=== PATIENT | male | born 1980 | race Caucasian/White ===

== ENCOUNTER 2017-10-07 12:13 | Day surgery (SDC) | payer OTHER ==
[2017-10-07] MEDS ORDERED: PROPOFOL 40 ML (15:35)
[2017-10-07] MEDS ORDERED: LIDOCAINE 100 MG SYRINGE ×3 (15:36→15:37)
[2017-10-07] MEDS ORDERED: KETAMINE (50 MG/ML) 10 ML VIAL (15:45)
== END 2017-10-07 17:58 | disposition home or self-care (01) ==
LOC: GIL 12:13
DX: I85.00 Esophageal varices without bleeding (principal); K29.70 Gastritis, unspecified, without bleeding; I10 Essential (primary) hypertension; E11.9 Type 2 diabetes mellitus without complications; F17.200 Nicotine dependence, unspecified, uncomplicated; Z79.84 Long term (current) use of oral hypoglycemic drugs
CPT/HCPCS: 43235; 82962

== ENCOUNTER 2018-01-06 21:21 | Emergency (ER) | payer OTHER ==
[2018-01-06] MEDS: LIDOCAINE 2% VISC 15 ML CUP PO (23:27)
[2018-01-06] MEDS: ACETAMINOPHEN 325/HYDROC 7.5 15 ML CUP PO (23:27)
[2018-01-06] MEDS: SOD CHLORIDE 0.9% 1,000 ML IV (23:27)
[2018-01-06] MEDS: KETOROLAC 15 MG INJ IV (23:34)
[2018-01-06 23:47] LABS: ADD MAN DIFF? NO
[2018-01-06 23:57] LABS: BASOPHIL # 0.1 10^3/ul (0.0-0.1); BASOPHILS % 0.6 % (0.0-2.0); EOSINOPHILS # 0.2 10^3/ul (0.0-0.5); EOSINOPHILS % 2.3 % (0.0-7.0); HEMATOCRIT 43.6 % (42.0-52.0); HEMOGLOBIN 15.4 g/dl (14.0-18.0); LYMPHOCYTES # 2.1 10^3/ul (0.8-2.9); LYMPHOCYTES % 19.8 % (15.0-51.0); MEAN CORPUSCULAR HEMOGLOBIN 32.2 pg (29.0-33.0); MEAN CORPUSCULAR HGB CONC 35.3 g/dl (32.0-37.0); MEAN CORPUSCULAR VOLUME 91.2 fl (82.0-101.0); MEAN PLATELET VOLUME 11.8 fl (7.4-10.4); MONOCYTE # 1.5 10^3/ul (0.3-0.9); MONOCYTES % 14.3 % (0.0-11.0); NEUTROPHIL # 6.6 10^3/ul (1.6-7.5); NEUTROPHILS % 62.6 % (39.0-77.0); PLATELET COUNT 155 10^3/UL (140-415); RED BLOOD COUNT 4.78 10^6/ul (4.70-6.10); RED CELL DISTRIBUTION WIDTH 13.1 % (11.5-14.5)
[2018-01-06 23:57] LABS: WHITE BLOOD COUNT 10.5 10^3/ul (4.8-10.8)
[2018-01-06 23:58] LABS: ADD UMIC NO; UR ASCORBIC ACID NEGATIVE (NEGATIVE); UR BILIRUBIN (Dip) NEGATIVE (NEGATIVE); UR BLOOD (Dip) NEGATIVE (NEGATIVE); UR CLARITY CLEAR (CLEAR); UR COLOR YELLOW (YELLOW); UR GLUCOSE (Dip) NEGATIVE (NEGATIVE); UR KETONES (Dip) 1+ mg/dL (NEGATIVE); UR LEUKOCYTE ESTERASE (Dip) NEGATIVE Leu/ul (NEGATIVE); UR NITRITE (Dip) NEGATIVE (NEGATIVE); UR SPECIFIC GRAVITY (Dip) 1.016 (1.003-1.030); UR TOTAL PROTEIN (Dip) NEGATIVE (NEGATIVE); UR UROBILINOGEN (Dip) 1+ mg/dL (NEGATIVE)
[2018-01-07 00:16] LABS: ALANINE AMINOTRANSFERASE 51 IU/L (13-69); ALBUMIN/GLOBULIN RATIO 1.21; ALKALINE PHOSPHATASE 131 IU/L (42-121); ANION GAP 15 (8-16); ASPARTATE AMINO TRANSFERASE 65 IU/L (15-46); BILIRUBIN,INDIRECT 2.5 mg/dl (0-1.1); BILIRUBIN,TOTAL 2.5 mg/dl (0.2-1.3); BLOOD UREA NITROGEN 6 mg/dl (7-20); CALCIUM 9.6 mg/dl (8.4-10.2); CARBON DIOXIDE 27 mmol/L (21-31); CHLORIDE 103 mmol/L (97-110); CREATININE 0.65 mg/dl (0.61-1.24); GLUCOSE 142 mg/dl (70-220); POTASSIUM 4.6 mmol/L (3.5-5.1); SODIUM 140 mmol/L (135-144); TOTAL PROTEIN 7.3 g/dl (6.1-8.1)
== END 2018-01-07 01:47 | disposition home or self-care (01) ==
LOC: FTE 01-07 01:47
DX: B37.0 Candidal stomatitis (principal); I10 Essential (primary) hypertension; F17.210 Nicotine dependence, cigarettes, uncomplicated
CPT/HCPCS: 80053; 81003; 82962; 85025; 96374; 99284-25

== ENCOUNTER 2018-02-23 18:25 | Inpatient (IN) | payer OTHER ==
[2018-02-23] MEDS ORDERED: MAGNESIUM HYDROXIDE 30ML CUP PO (19:30)
[2018-02-23] MEDS ORDERED: ACETAMINOPHEN 325 MG TAB PO (19:30)
[2018-02-23] MEDS ORDERED: DOCUSATE SODIUM 100 MG CAP PO (19:30)
[2018-02-23] MEDS ORDERED: BISACODYL (EC) 5 MG TAB PO (19:30)
[2018-02-23] MEDS: NADOLOL 40 MG TAB PO (19:30)
[2018-02-23] MEDS: SOD CHLORIDE 0.9% 1,000 ML IV (19:51)
[2018-02-23 19:52] LABS: ADD MAN DIFF? NO; HAAIG REFLEX REFLEX FILED
[2018-02-23] MEDS ORDERED: GLUCOSE GEL 15 GRAM TUBE BUCCAL (20:00)
[2018-02-23] MEDS ORDERED: DEXTROSE 50% 50 ML SYRINGE IV ×2 (20:00)
[2018-02-23] MEDS ORDERED: GLUCOSE GEL 15 GRAM TUBE PO ×2 (20:00)
[2018-02-23] MEDS ORDERED: GLUCAGON 1 MG INJ IM (20:00)
[2018-02-23] MEDS: morphine 2 MG INJ IV (20:02)
[2018-02-23] MEDS: CEFTRIAXONE 1 GM/50 ML (PMX) 50 ML IVPB (20:03)
[2018-02-23 20:08] LABS: WHITE BLOOD COUNT 6.7 10^3/ul (4.8-10.8)
[2018-02-23 20:08] LABS: BASOPHILS % 0.6 % (0.0-2.0); EOSINOPHILS # 0.7 10^3/ul (0.0-0.5); EOSINOPHILS % 9.9 % (0.0-7.0); HEMATOCRIT 43.8 % (42.0-52.0); HEMOGLOBIN 15.2 g/dl (14.0-18.0); LYMPHOCYTES # 2.3 10^3/ul (0.8-2.9); LYMPHOCYTES % 34.7 % (15.0-51.0); MEAN CORPUSCULAR HEMOGLOBIN 32.2 pg (29.0-33.0); MEAN CORPUSCULAR HGB CONC 34.7 g/dl (32.0-37.0); MEAN CORPUSCULAR VOLUME 92.8 fl (82.0-101.0); MEAN PLATELET VOLUME 11.4 fl (7.4-10.4); MONOCYTE # 0.8 10^3/ul (0.3-0.9); MONOCYTES % 12.5 % (0.0-11.0); NEUTROPHIL # 2.8 10^3/ul (1.6-7.5); NEUTROPHILS % 41.8 % (39.0-77.0); PLATELET COUNT 105 10^3/UL (140-415); RED BLOOD COUNT 4.72 10^6/ul (4.70-6.10); RED CELL DISTRIBUTION WIDTH 13.2 % (11.5-14.5)
[2018-02-23 20:15] LABS: LACTIC ACID 1.6 mmol/L (0.5-2.0)
[2018-02-23 20:15] LABS: ALANINE AMINOTRANSFERASE 57 IU/L (13-69); ALBUMIN/GLOBULIN RATIO 1.14; ALKALINE PHOSPHATASE 229 IU/L (42-121); ANION GAP 13 (8-16); ASPARTATE AMINO TRANSFERASE 108 IU/L (15-46); BILIRUBIN,INDIRECT 3.2 mg/dl (0-1.1); BILIRUBIN,TOTAL 3.2 mg/dl (0.2-1.3); BLOOD UREA NITROGEN 10 mg/dl (7-20); CARBON DIOXIDE 27 mmol/L (21-31); CHLORIDE 104 mmol/L (97-110); CREATININE 0.61 mg/dl (0.61-1.24); GLUCOSE 107 mg/dl (70-220); POTASSIUM 4.4 mmol/L (3.5-5.1); SODIUM 140 mmol/L (135-144); TOTAL PROTEIN 7.5 g/dl (6.1-8.1)
[2018-02-23 20:46] LABS: HEPATITIS B SURFACE ANTIGEN NEGATIVE (NEGATIVE)
[2018-02-23] MEDS: INSULIN ASPART [NOVOLOG] 3 ML PEN SC (21:00)
[2018-02-23 21:03] LABS: HEPATITIS B CORE ANTIBODY NEGATIVE (NEGATIVE); HIV 1&2 ANTIBODY NEGATIVE (NEGATIVE)
[2018-02-23] MEDS: VALACYCLOVIR 500 MG TAB PO (21:05)
[2018-02-23] MEDS: NYSTATIN SUSP 5 ML CUP PO (21:05)
[2018-02-23 22:03] LABS: HEPATITIS C VIRAL ANTIBODY NEGATIVE (NEGATIVE)
[2018-02-24] MEDS: morphine 2 MG INJ IV ×5 (00:26→19:35)
[2018-02-24] MEDS: ACCU-CHEK XX (01:47)
[2018-02-24 06:34] LABS: ADD MAN DIFF? NO; BASOPHILS % 0.5 % (0.0-2.0); EOSINOPHILS # 0.5 10^3/ul (0.0-0.5); EOSINOPHILS % 8.4 % (0.0-7.0); HEMATOCRIT 42.7 % (42.0-52.0); HEMOGLOBIN 14.6 g/dl (14.0-18.0); LYMPHOCYTES # 2.8 10^3/ul (0.8-2.9); LYMPHOCYTES % 45.2 % (15.0-51.0); MEAN CORPUSCULAR HEMOGLOBIN 31.7 pg (29.0-33.0); MEAN CORPUSCULAR HGB CONC 34.2 g/dl (32.0-37.0); MEAN CORPUSCULAR VOLUME 92.8 fl (82.0-101.0); MEAN PLATELET VOLUME 11.6 fl (7.4-10.4); MONOCYTE # 0.8 10^3/ul (0.3-0.9); MONOCYTES % 12.8 % (0.0-11.0); NEUTROPHILS % 32.8 % (39.0-77.0); PLATELET COUNT 113 10^3/UL (140-415); POSITIVE DIFF @See below; RED CELL DISTRIBUTION WIDTH 13.3 % (11.5-14.5)
[2018-02-24 06:34] LABS: WHITE BLOOD COUNT 6.2 10^3/ul (4.8-10.8)
[2018-02-24 06:50] LABS: HEMOGLOBIN A1C 6.6 % (0-5.9)
[2018-02-24 07:06] LABS: ALANINE AMINOTRANSFERASE 63 IU/L (13-69); ALBUMIN 3.9 g/dl (3.3-4.9); ALBUMIN/GLOBULIN RATIO 0.97; ALKALINE PHOSPHATASE 222 IU/L (42-121); ANION GAP 14 (8-16); ASPARTATE AMINO TRANSFERASE 100 IU/L (15-46); BILIRUBIN,INDIRECT 3.1 mg/dl (0-1.1); BILIRUBIN,TOTAL 3.1 mg/dl (0.2-1.3); BLOOD UREA NITROGEN 9 mg/dl (7-20); CALCIUM 8.9 mg/dl (8.4-10.2); CARBON DIOXIDE 28 mmol/L (21-31); CHLORIDE 99 mmol/L (97-110); CREATININE 0.58 mg/dl (0.61-1.24); GLUCOSE 104 mg/dl (70-220); MAGNESIUM 1.3 mg/dl (1.7-2.5); POTASSIUM 3.6 mmol/L (3.5-5.1); SODIUM 137 mmol/L (135-144); TOTAL PROTEIN 7.9 g/dl (6.1-8.1)
[2018-02-24] MEDS: INSULIN ASPART [NOVOLOG] 3 ML PEN SC ×4 (07:52→20:47)
[2018-02-24] MEDS: VALACYCLOVIR 500 MG TAB PO ×2 (08:14→20:50)
[2018-02-24] MEDS: HYDROCODONE/APAP (5/325) TAB PO (08:14)
[2018-02-24] MEDS: LOSARTAN 25 MG TAB PO (08:14)
[2018-02-24] MEDS: NYSTATIN SUSP 5 ML CUP PO ×4 (08:14→20:50)
[2018-02-24] MEDS: NADOLOL 40 MG TAB PO (09:00)
[2018-02-24] MEDS ORDERED: LIDOCAINE 2% VISC 15 ML CUP MM (12:00)
[2018-02-24] MEDS: SOD CHLORIDE 0.9% 1,000 ML IV ×2 (15:13→17:24)
[2018-02-24] MEDS: FLUCONAZOLE 150 MG TAB PO (18:35)
[2018-02-24] MEDS: PROPRANOLOL 10 MG TAB PO (18:37)
[2018-02-24] MEDS: CEFTRIAXONE 1 GM/50 ML (PMX) 50 ML IVPB (19:35)
[2018-02-24] MEDS: GABAPENTIN 100 MG CAP PO (20:48)
[2018-02-24] MEDS: ACYCLOVIR 1,000 MG in SOD CHLORIDE 0.9% 100 ML IVPB (23:51)
[2018-02-24] MEDS: CASPOFUNGIN 70 MG in SOD CHLORIDE 0.9% 250 ML IVPB (23:51)
[2018-02-25] MEDS: NACL 0.9% 3 ML SYG IV (00:34)
[2018-02-25] MEDS: ACCU-CHEK XX (02:00)
[2018-02-25] MEDS: ACYCLOVIR 1,000 MG in SOD CHLORIDE 0.9% 100 ML IVPB (05:22)
[2018-02-25] MEDS: PANTOPRAZOLE (EC) 40 MG TAB PO (05:22)
[2018-02-25] MEDS: morphine 2 MG INJ IV (07:50)
[2018-02-25] MEDS: INSULIN ASPART [NOVOLOG] 3 ML PEN SC ×2 (07:53→12:00)
[2018-02-25] MEDS: PROPRANOLOL 10 MG TAB PO (08:10)
[2018-02-25] MEDS: LOSARTAN 25 MG TAB PO (08:10)
[2018-02-25] MEDS: GABAPENTIN 100 MG CAP PO (08:10)
[2018-02-25] MEDS: NYSTATIN SUSP 5 ML CUP PO (08:10)
[2018-02-25 10:24] LABS: ADD MAN DIFF? NO
[2018-02-25 10:36] LABS: BASOPHILS % 0.7 % (0.0-2.0); EOSINOPHILS # 0.1 10^3/ul (0.0-0.5); EOSINOPHILS % 1.2 % (0.0-7.0); HEMATOCRIT 40.3 % (42.0-52.0); HEMOGLOBIN 14.2 g/dl (14.0-18.0); LYMPHOCYTES # 1.3 10^3/ul (0.8-2.9); LYMPHOCYTES % 32.4 % (15.0-51.0); MEAN CORPUSCULAR HEMOGLOBIN 31.9 pg (29.0-33.0); MEAN CORPUSCULAR HGB CONC 35.2 g/dl (32.0-37.0); MEAN CORPUSCULAR VOLUME 90.6 fl (82.0-101.0); MEAN PLATELET VOLUME 10.9 fl (7.4-10.4); MONOCYTE # 0.6 10^3/ul (0.3-0.9); MONOCYTES % 14.6 % (0.0-11.0); NEUTROPHILS % 50.6 % (39.0-77.0); PLATELET COUNT 127 10^3/UL (140-415); RED BLOOD COUNT 4.45 10^6/ul (4.70-6.10); RED CELL DISTRIBUTION WIDTH 12.5 % (11.5-14.5)
[2018-02-25 11:05] LABS: ALANINE AMINOTRANSFERASE 55 IU/L (13-69); ALBUMIN 3.5 g/dl (3.3-4.9); ALBUMIN/GLOBULIN RATIO 0.94; ALKALINE PHOSPHATASE 213 IU/L (42-121); ANION GAP 12 (8-16); ASPARTATE AMINO TRANSFERASE 84 IU/L (15-46); BILIRUBIN,INDIRECT 2.4 mg/dl (0-1.1); BILIRUBIN,TOTAL 2.4 mg/dl (0.2-1.3); BLOOD UREA NITROGEN 7 mg/dl (7-20); CALCIUM 9.1 mg/dl (8.4-10.2); CARBON DIOXIDE 26 mmol/L (21-31); CHLORIDE 103 mmol/L (97-110); CREATININE 0.51 mg/dl (0.61-1.24); GLUCOSE 155 mg/dl (70-220); MAGNESIUM 1.4 mg/dl (1.7-2.5); POTASSIUM 3.7 mmol/L (3.5-5.1); SODIUM 137 mmol/L (135-144); TOTAL PROTEIN 7.2 g/dl (6.1-8.1)
[2018-02-25] MEDS: SOD CHLORIDE 0.9% 1,000 ML IV (12:56)
[2018-02-25] MEDS ORDERED: morphine LIQ (10 MG/5 ML) CUP PO (14:00)
[2018-02-25 19:42] LABS: RAPID PLASMA REAGIN NONREACTIVE (NR)
[2018-02-26 13:31] LABS: HSV 1 IGG ANTIBODY >58.00 index; HSV 2 IGG ANTIBODY 2.77 index
[2018-03-04] MEDS ORDERED: CASPOFUNGIN 50 MG in SOD CHLORIDE 0.9% 250 ML IVPB (21:00)
== END 2018-02-25 15:00 | disposition left against medical advice (07) | DRG 159 ==
LOC: 2NE 18:25
DX: B37.0 Candidal stomatitis (principal); K70.30 Alcoholic cirrhosis of liver without ascites; I10 Essential (primary) hypertension; E11.9 Type 2 diabetes mellitus without complications; F10.20 Alcohol dependence, uncomplicated
CPT/HCPCS: 80053; 82962; 83036; 83605; 83735; 84100; 85025; 86592; 86692; 86703; 86704; 86709; 86803; 87040; 87070; 87081; 87340; 87536

== ENCOUNTER 2018-02-25 16:41 | Emergency (ER) | payer OTHER ==
[2018-02-25 19:15] LABS: ADD MAN DIFF? NO
[2018-02-25 19:24] LABS: BASOPHILS % 0.3 % (0.0-2.0); EOSINOPHILS % 0.2 % (0.0-7.0); HEMATOCRIT 42.1 % (42.0-52.0); HEMOGLOBIN 14.8 g/dl (14.0-18.0); LYMPHOCYTES # 1.4 10^3/ul (0.8-2.9); LYMPHOCYTES % 22.5 % (15.0-51.0); MEAN CORPUSCULAR HEMOGLOBIN 31.8 pg (29.0-33.0); MEAN CORPUSCULAR HGB CONC 35.2 g/dl (32.0-37.0); MEAN CORPUSCULAR VOLUME 90.5 fl (82.0-101.0); MEAN PLATELET VOLUME 10.4 fl (7.4-10.4); MONOCYTE # 0.9 10^3/ul (0.3-0.9); MONOCYTES % 14.2 % (0.0-11.0); NEUTROPHIL # 3.9 10^3/ul (1.6-7.5); PLATELET COUNT 169 10^3/UL (140-415); RED BLOOD COUNT 4.65 10^6/ul (4.70-6.10); RED CELL DISTRIBUTION WIDTH 12.8 % (11.5-14.5)
[2018-02-25 19:24] LABS: WHITE BLOOD COUNT 6.2 10^3/ul (4.8-10.8)
[2018-02-25 19:36] LABS: ADD UMIC YES; UR ASCORBIC ACID NEGATIVE (NEGATIVE); UR BILIRUBIN (Dip) NEGATIVE (NEGATIVE); UR BLOOD (Dip) NEGATIVE (NEGATIVE); UR CLARITY CLEAR (CLEAR); UR COLOR YELLOW (YELLOW); UR GLUCOSE (Dip) NEGATIVE (NEGATIVE); UR KETONES (Dip) 1+ mg/dL (NEGATIVE); UR LEUKOCYTE ESTERASE (Dip) NEGATIVE Leu/ul (NEGATIVE); UR NITRITE (Dip) NEGATIVE (NEGATIVE); UR RBC 1 /HPF (0-5); UR SPECIFIC GRAVITY (Dip) 1.015 (1.003-1.030); UR TOTAL PROTEIN (Dip) 1+ mg/dl (NEGATIVE); UR UROBILINOGEN (Dip) 2+ mg/dL (NEGATIVE); UR WBC 1 /HPF (0-5)
[2018-02-25 19:54] LABS: ALANINE AMINOTRANSFERASE 62 IU/L (13-69); ALBUMIN 4.1 g/dl (3.3-4.9); ALBUMIN/GLOBULIN RATIO 1.05; ALKALINE PHOSPHATASE 221 IU/L (42-121); ANION GAP 13 (8-16); ASPARTATE AMINO TRANSFERASE 87 IU/L (15-46); BILIRUBIN,INDIRECT 2.5 mg/dl (0-1.1); BILIRUBIN,TOTAL 2.5 mg/dl (0.2-1.3); BLOOD UREA NITROGEN 8 mg/dl (7-20); CALCIUM 9.6 mg/dl (8.4-10.2); CARBON DIOXIDE 28 mmol/L (21-31); CHLORIDE 102 mmol/L (97-110); CREATININE 0.58 mg/dl (0.61-1.24); GLUCOSE 136 mg/dl (70-220); POTASSIUM 4.4 mmol/L (3.5-5.1); SODIUM 139 mmol/L (135-144)
[2018-02-25 20:00] LABS: ACETAMINOPHEN < 10.0 ug/ml (10.0-30.0); SALICYLATE < 1.0 mg/dl (5.0-30.0)
[2018-02-25 20:04] LABS: AMPHETAMINE/METHAMPHETAMINE Negative (NEGATIVE); BARBITURATES Negative (NEGATIVE); BENZODIAZEPINES Negative (NEGATIVE); CANNABINOIDS Positive (NEGATIVE); COCAINE Negative (NEGATIVE)
[2018-02-25 20:09] LABS: OPIATES Positive (NEGATIVE)
[2018-02-25 20:13] LABS: ETHANOL < 10.0 mg/dl
[2018-02-25] MEDS: HYDROCODONE/APAP (5/325) TAB PO (22:54)
== END 2018-02-25 23:14 | disposition home or self-care (01) ==
LOC: E/R 23:14
DX: R44.0 Auditory hallucinations (principal); T36.7X5A Adverse effect of antifungal antibiotics, systemically used, initial encounter; I10 Essential (primary) hypertension; E11.9 Type 2 diabetes mellitus without complications; Z79.84 Long term (current) use of oral hypoglycemic drugs; Z87.891 Personal history of nicotine dependence
CPT/HCPCS: 36415; 80053; 80307; 81001; 85025; 99283

== ENCOUNTER 2018-08-15 20:17 | Emergency (ER) | payer OTHER ==
[2018-08-16] MEDS: predniSONE 20 MG TAB PO (00:07)
[2018-08-16] MEDS: CHLORHEXIDINE GLUCONATE 15 ML UD CUP MT (00:07)
[2018-08-16] MEDS: KETOROLAC 15 MG INJ IM (00:07)
== END 2018-08-16 00:45 | disposition home or self-care (01) ==
LOC: E/R 08-16 00:45
DX: K12.1 Other forms of stomatitis (principal); I10 Essential (primary) hypertension; E11.9 Type 2 diabetes mellitus without complications; Z79.84 Long term (current) use of oral hypoglycemic drugs; Z87.891 Personal history of nicotine dependence
CPT/HCPCS: 96372; 99284-25

== ENCOUNTER 2018-09-08 13:20 | Emergency (ER) | payer OTHER | END 2018-09-08 15:44 | disposition home or self-care (01) | LOC: FTE 13:20 | DX: K12.0 Recurrent oral aphthae (principal); E11.9 Type 2 diabetes mellitus without complications; I10 Essential (primary) hypertension; Z79.84 Long term (current) use of oral hypoglycemic drugs | CPT/HCPCS: 99283; Z7502 ==

== ENCOUNTER 2018-09-13 10:24 | Emergency (ER) | payer OTHER | END 2018-09-13 16:44 | disposition home or self-care (01) | LOC: FTE 10:24 | DX: K12.0 Recurrent oral aphthae (principal); I10 Essential (primary) hypertension; E11.9 Type 2 diabetes mellitus without complications; Z79.84 Long term (current) use of oral hypoglycemic drugs | CPT/HCPCS: 99283; Z7502 ==